=== PATIENT | female | born 1980 ===

== ENCOUNTER 2017-05-23 09:10 | Emergency (ER) | payer OTHER ==
[2017-05-23 09:17] VITALS: BP 126/81; PULSE 79; RESP 20; TEMP 98.8; O2SAT 99
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
== END 2017-05-23 12:00 | disposition home or self-care (01) ==
LOC: H.ER 09:10
DX: M54.5 Low back pain (principal); V79.50XA Passenger on bus injured in collision with unspecified motor vehicles in traffic accident, initial encounter